=== PATIENT | female | born 1985 | race Caucasian/White ===

== ENCOUNTER 2016-04-26 23:22 | Emergency (ER) ==
[2016-04-26 23:44] VITALS: BP 140/89
[2016-04-26] MEDS ORDERED: ULTRAM PO ONE (23:45)
--- NOTE | 2016-04-27 00:22 | PROVIDER DOCUMENTATION ---
HPI-Musculoskeletal Pain/Inj - GENERAL Source: patient - HX OF PRESENT ILLNESS-MUSKULOSKELTAL Quality of Pain: reports: aching Severity in ED: mild Onset/Duration: just prior to arrival Timing: still present Any recent injury?: Yes Locality of Occurance: Home Similar Symptoms Previously?: No Recently seen or treated by another doctor?: No - LOWER EXTREMITY PAIN/INJURY Lower Extremities Pain: ankle: right Context / Method of Injury: reports: twisted Associated Symptoms: reports: denies symptoms <Machelle Nj - Last Filed: 04/27/16 00:22> <Raul Sandoval - Last Filed: 04/27/16 00:29> - GENERAL Chief Complaint: Extremity Injury Stated Complaint: FT INJURY Time Seen by Provider: 04/26/16 23:30 - HX OF PRESENT ILLNESS-MUSKULOSKELTAL Nature of Presenting Problem: 30 year old F presents to the ED with a cc of right ankle pain. 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 PT c/o pain with ambulation. (Machelle Nj) Review of Systems - Adult - REVIEW OF SYSTEMS - ADULT Constitutional: denies: chills, fever Eyes: reports: no symptoms reported Ears, Nose, Mouth & Throat: reports: no symptoms reported Cardiovascular: reports: no symptoms reported Respiratory: reports: no symptoms reported Gastrointestinal: denies: diarrhea, vomiting Genitourinary: reports: no symptoms reported Musculoskeletal: reports: joint pain, muscle aches. denies: muscle weakness Integumentary: denies: skin sores/ulcer, skin thickening Neurological: reports: no symptoms reported Psychiatric: reports: no symptoms reported Endocrine: reports: no symptoms reported Hematologic/Lymphatic: reports: no symptoms reported Allergic/Immunologic: reports: no symptoms reported All Other Systems: Reviewed and Negative <Machelle Nj - Last Filed: 04/27/16 00:22> Past History - Adult - PAST MEDICAL HISTORY-ADULT Review of Records: reports: Nursing Assessment Review, Medications Reviewed Major Childhood Illnesses: reports: denies history Cardiovascular: reports: denies history Respiratory: reports: denies history Gastrointestinal: reports: denies history Obstetrical/Gynecological: reports: denies history Genitourinary: reports: denies history Musculoskeletal: reports: denies history Neurological: reports: denies history Endocrine/Immune: reports: denies history Other Conditions: reports: denies history - PRIOR SURGERIES/PROCEDURES Surgical/Procedure History: reports: none, other (lipthrotripsy) - IMMUNIZATION STATUS Childhood Immunizations: See Nurse Assessment Flu Vaccine: See Nurse Assessment - FAMILY HISTORY Family History: reviewed, not pertinent - SOCIAL HISTORY Smoking: non-smoker Substance Use: none/never Alcohol Use Frequency: never <Machelle Nj - Last Filed: 04/27/16 00:22> Physical Exam-Injury Related - Physical Exam-Injury Related Initial Vital Signs Reviewed: Yes General Appearance: appears well, alert, no apparent distress Respiratory: chest non-tender, lungs clear, normal breath sounds Cardiovascular: normal peripheral pulses, regular rate, rhythm, no edema Extremity: swelling (right lateral ankle), tenderness (right lateral ankle) Integumentary: normal color, warm/dry Psych/Mental Status: normal mood/affect, normal thought content, normal thought process, oriented x 3 <Machelle Nj - Last Filed: 04/27/16 00:22> Progress - XRAY 1 XRAY: Right XRAY Study: Ankle Impression: Normal XRAY Interpretation: negative: Kamron Sandoval 2 XRAY: Right XRAY Study: Foot Impression: Normal XRAY Interpretation: negative: Kamron Sandoval <Machelle Nj - Last Filed: 04/27/16 00:22> <Raul Sandoval - Last Filed: 04/27/16 00:29> - PLAN OF CARE/RESULTS Progress/Plan/Lab Results: plan of care: imaging, medications Orders Category Date Time Status ANKLE COMPLETE RIGHT [RAD] Stat Exams 04/26/16 23:45 Taken FOOT COMPLETE RIGHT [RAD] Stat Exams 04/26/16 23:45 Taken Tramadol [Ultram] Med 04/26/16 23:45 Discontinued 50 mg PO NOW ONE Vital Signs - 24 hr 04/26/16 23:40 Temperature 98.3 F Pulse Rate 118 H Respiratory 16 Rate Blood Pressure 140/89 O2 Sat by Pulse 100 Oximetry Pt given results and will be d/c home w/ rx to follow up with PCP. Pt verbally understood instructions. PT remained clinically stable throughout the course of the ED stay and will return if symptoms worsen. (Machelle Nj) Orders Category Date Time Status Esteban Wrap Application DIRECTED Care 04/27/16 00:25 Active ANKLE COMPLETE RIGHT [RAD] Stat Exams 04/26/16 23:45 Taken FOOT COMPLETE RIGHT [RAD] Stat Exams 04/26/16 23:45 Taken Tramadol [Ultram] Med 04/26/16 23:45 Discontinued 50 mg PO NOW ONE Vital Signs Temp Pulse Resp BP Pulse Ox 04/26/16 23:40 98.3 F 118 H 16 140/89 100 No Known Allergies Allergy (Verified 08/21/15 19:43) Hydrocodone/APAP 7.5 mg/325 mg [[place]-7.5] 1 each PO Q6H PRN PRN #14 tablet Polyethylene Glycol 3350 [Miralax] 255 gm PO DAILY #1 powder 08/21/15 Promethazine [Phenergan] 25 mg PO Q6H PRN PRN #20 tablet 08/21/15 Hydrocodone/APAP 10 mg/325 mg [[place]-10] 1 each PO Q4H PRN PRN #30 tablet Albuterol Sulfate Inhaler [Ventolin Hfa] 2 puff INH Q6H PRN PRN #1 inhaler 01/04 Azithromycin [Zithromax Z-Александр] 250 mg PO DIRECTED #1 pkg 01/05/16 Prednisone 50 mg PO DAILY #5 tablet 01/05/16 Pt already has crutches at home. 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 Rest, ice and elevate. Follow up with your primary care provider or orthopedist. ED Follow Up Instructions: You have been treated by a care provider in the Emergency Department. These instructions are being provided to you so you can have an understanding of how to care for yourself upon discharge. Upon discharge from the Emergency Department, you are responsible for making arrangements for follow-up care by a physician of your choice. Take all prescribed medications as directed. Return to the Emergency Department immediately for any new or worsening symptoms. You may call the Physician Referral phone number at [phone] to obtain a list of Physicians who are taking new patients. Prescriptions: Cyclobenzaprine [Flexeril] 10 mg PO TID #20 tablet Meloxicam [Mobic] 7.5 mg PO DAILY PRN PRN #15 tablet PRN Reason: Pain Referrals: None,PCP [Primary Care Provider] - Arlene Briggs MD [STAFF PHYSICIAN] - Attestation - Scribe Verification/Attestation Scribe:: Machelle Nj Acting as Scribe for:: Raul Sandoval Scribe documention review:: This chart was documented by a scribe and accurately reflects the service the provider performed and the decisions made by the provider. <Machelle Nj - Last Filed: 04/27/16 00:22> - Physician/ KHALIF Attestation Patient care was provided by Advanced Practice Provider:: Yes Advanced Practice Provider:: Raul Sandoval Advanced Practice Provider documentation review:: The Mid-level provider documentation, treatment plan and medical decision making was reviewed by the physician who agrees with all treatment and medical decision making by the [facility]. <Raul Sandoval - Last Filed: 04/27/16 00:29> Physician Attestation - Physician Attestation I, the provider, attest to the following statement:: Raul Sandoval Physician documentation Attestation:: This documentation recorded by the scribe accurately reflects the service I personally performed and the decisions made by me. <Machelle Nj - Last Filed: 04/27/16 00:22>
--- NOTE | 2016-04-27 08:17 | Diag Imaging Result Document ---
PROCEDURE NAME: FOOT COMPLETE RIGHT - 04/26/2016 RIGHT FOOT, 3 VIEWS: COMPARISON: None. FINDINGS: Bones are intact and normally aligned. Joint spaces and soft tissues are clear. IMPRESSION: Negative exam.
--- NOTE | 2016-04-27 08:18 | Diag Imaging Result Document ---
PROCEDURE NAME: ANKLE COMPLETE RIGHT - 04/26/2016 X-RAY RIGHT ANKLE 3 VIEWS, 04/27/2016: COMPARISON: None. FINDINGS: Bones are intact and normally aligned. Joint spaces and soft tissues are clear. IMPRESSION: Negative exam.
== END 2016-04-27 00:59 | disposition home or self-care (01) ==
LOC: P.ED 23:22
DX: S93.401A Sprain of unspecified ligament of right ankle, initial encounter (principal); M25.571 Pain in right ankle and joints of right foot; M79.1 Myalgia; M25.471 Effusion, right ankle; X58.XXXA Exposure to other specified factors, initial encounter
CPT/HCPCS: 99283

== ENCOUNTER 2018-08-22 17:45 | Inpatient (IN) ==
--- NOTE | 2018-08-22 18:44 | PROVIDER DOCUMENTATION ---
This chart was entered by Sybil Gregory Scribe, acting as scribe for Maryuri Saba CRNP. HPI-Abdominal Pain/GI Problem - General Chief Complaint: GI Bleed Stated Complaint: LOWER ADB/BACK PAIN,CONSTIPATION Time Seen by Provider: 08/22/18 18:10 Source: patient Allergies/Adverse Reactions: Patient Allergies Allergy/AdvReac Type Severity Reaction Status Date / Time No Known Allergies Allergy Verified 07/23/18 13:04 Home Medications: Home Medication List Medication Instructions Recorded Confirmed Last Taken Type Hydrocodone/APAP 7.5 mg/325 mg 1 each PO Q6H PRN PRN #14 tablet 08/21/15 09/01/15 08/29/15 Rx [[place]-7.5] Polyethylene Glycol 3350 [Miralax] 255 gm PO DAILY #1 powder 08/21/15 09/01/15 Unknown Rx Promethazine [Phenergan] 25 mg PO Q6H PRN PRN #20 tablet 08/21/15 09/01/15 Unknown Rx Hydrocodone/APAP 10 mg/325 mg 1 each PO Q4H PRN PRN #30 tablet 09/01/15 Unknown Rx [[place]-10] Albuterol Sulfate Inhaler 2 puff INH Q6H PRN PRN #1 inhaler 01/05/16 Unknown Rx [Ventolin Hfa] Azithromycin [Zithromax Z-Александр] 250 mg PO DIRECTED #1 pkg 01/05/16 Unknown Rx Prednisone 50 mg PO DAILY #5 tablet 01/05/16 Unknown Rx Cyclobenzaprine [Flexeril] 10 mg PO TID #20 tablet 04/27/16 Unknown Rx Meloxicam [Mobic] 7.5 mg PO DAILY PRN PRN #15 tablet 04/27/16 Unknown Rx - History of Present Illness-ABD Nature of Presenting Problems: pt is a 33 yr old female presenting with complaint of bloody bowel movement. pt reports 2 bowel movements with bright red blood and clots noted in toilet. pt denies abdominal pain at this time. pt reports hx of chronic constipation treated by GI as IBS with Linzess, pt stopped taking Linzess recently. pt admits chronic abdominal pain but denies pain currently. pt is tachycardia at 148, reports this is her normal and she has been seen and evaluated by cardiology for same. pt is followed by GI. 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) Timing: reports: still present Activities at Onset: reports: other (bowel movement) Exposure to sick contacts?: No Modifying Factors: improves with: nothing Associated Symptoms: denies: chest pain, diarrhea, genitourinary problems, nausea, vomiting Last BM: this evening (1800) Dark Stools Present?: reports: bright red blood Rectal Bleeding: reports: bleeding without stool (bright red blood and clots noted in toilet) Rectal Pain: reports: none Emesis Description: reports: none Bruising or Bleeding Gums?: No Similar Symptoms Previously?: Yes Recently seen or treated by another doctor?: No Review of Systems - Adult - REVIEW OF SYSTEMS - ADULT Constitutional: denies: fever, fatique Eyes: reports: no symptoms reported Ears, Nose, Mouth & Throat: reports: no symptoms reported Cardiovascular: denies: chest pain, palpitations, syncope Respiratory: denies: cough, shortness of breath Gastrointestinal: reports: rectal bleeding. denies: diarrhea, nausea, vomiting Genitourinary: reports: no symptoms reported Musculoskeletal: reports: no symptoms reported Integumentary: reports: no symptoms reported Neurological: denies: dizziness/vertigo Psychiatric: reports: no symptoms reported Endocrine: reports: no symptoms reported Hematologic/Lymphatic: reports: no symptoms reported Allergic/Immunologic: reports: no symptoms reported All Other Systems: Reviewed and Negative Past History - Adult - PAST MEDICAL HISTORY-ADULT Review of Records: reports: Old Records Reviewed, Nursing Assessment Review, Medications Reviewed, Social history reviewed & non-contributory. Major Childhood Illnesses: reports: denies history Cardiovascular: reports: denies history Respiratory: reports: denies history Gastrointestinal: reports: IBS Obstetrical/Gynecological: reports: denies history Genitourinary: reports: denies history Musculoskeletal: reports: denies history Neurological: reports: denies history Psychiatric: reports: denies history Endocrine/Immune: reports: denies history Other Conditions: reports: denies history - PRIOR SURGERIES/PROCEDURES Surgical/Procedure History: reports: none, cholecystectomy, other (lipthrotripsy) - IMMUNIZATION STATUS Childhood Immunizations: See Nurse Assessment Flu Vaccine: See Nurse Assessment - FAMILY HISTORY Family History: reviewed, not pertinent - SOCIAL HISTORY Smoking: quit greater than 1 year Substance Use: denies Living Situation: family Physical Exam-General - PHYSICAL EXAM-ADULT Initial Vital Signs Reviewed: Yes - CONSTITUTIONAL General Appearance: appears well, alert, no apparent distress, obese - EYES Eyes: PERRL/EOMI - HEAD, EARS, NOSE, MOUTH & THROAT HENMT: normocephalic/atraumatic, moist mucous membranes - RESPIRATORY Respiratory: lungs clear, normal breath sounds - CARDIOVASCULAR Cardiovascular: normal peripheral pulses, tachycardia (148) - GASTROINTESTINAL (ABDOMEN) Abdominal Exam: normal bowel sounds, non tender, soft - GENITOURINARY Rectal Exam: normal rectal tone, other (HARD STOOL WITHIN THE RECTAL VAULT) Hemoccult Exam: heme positive stool - LYMPHATIC Lymphatic: no adenopathy - MUSCULOSKELETAL Extremity: normal range of motion, non-tender, normal gait, normal inspection - SKIN Integumentary: normal color, normal turgor, warm/dry - PSYCHIATRIC Psych/Mental Status: normal mood/affect Progress - PLAN OF CARE/RESULTS Progress/Plan/Lab Results: Vital Signs - 8 hr 08/22/18 18:00 Temperature 97.9 F Pulse Rate 147 H Respiratory Rate 18 Blood Pressure 129/90 O2 Sat by Pulse Oximetry 100 Orders Category Date Time Status ED: Urine Bedside ORDERED Care 08/22/18 18:14 Active Saline Loc NOW Care 08/22/18 18:08 Active BASIC METABOLIC PANEL [CHEM] Stat Lab 08/22/18 18:08 Uncollected CBC WITH ELECTRONIC DIFF [HEME] Stat Lab 08/22/18 18:08 Uncollected OCCULT BLOOD SCREENING [STOOL] Stat Lab 08/22/18 18:08 Uncollected PROTIME WITH INR [COAG] Stat Lab 08/22/18 18:08 Uncollected PTT [COAG] Stat Lab 08/22/18 18:08 Uncollected TYPE & SCREEN [BBK] Stat Lab 08/22/18 18:08 Uncollected UA NIMS W/REFLEX CULT [URINALYSIS] Stat Lab 08/22/18 18:14 Uncollected EKG [EKG] Stat Ther 08/22/18 18:08 Ordered Result Diagrams: 08/22/18 18:55 08/22/18 18:55 - EKG 1 Time of EKG reading by physician:: 19:59 EKG Read and Signed by:: Brandon Renteria EKG Interpretation (*Must complete 3 of following elements*): Abnormal (inferior infarct-age undetermined) Rate: 121 Rhythm: sinus tachycardia [place]: normal QRS: normal AR Interval: normal - CT/MRI 1 CT Study: Abdomen, Pelvis Impression: Abnormal, See EMR Report (EXAM: CT ABD/PELVIS W/IV CONT ONLY INDICATION: abd pain/GI BLEEDING TECHNIQUE: This exam was performed using automated exposure control, adjustment of mA or kV according to patient size, and/or use of iterative reconstruction technique. COMPARISON: 08/21/2015 FINDINGS: There has been a prior cholecystectomy. The liver, spleen, pancreas, adrenal glands, kidneys, and urinary bladder are grossly unremarkable. The reproductive tract is unremarkable as imaged. The appendix is normal. There is rectal wall thickening and subtle inflammatory stranding around the rectum suggesting proctitis. The remainder of the GI tract is essentially unremarkable. There are several shotty borderline prominent pelvic lymph nodes which may be reactive. IMPRESSION: Thickening and subtle inflammatory stranding associated with the rectum suggesting proctitis.) - CONSULTS/PCP/HOSPITALIST Notification #1 *Consult/PCP/Hospitalist*: DR OBANDO Time Discussed: 21:27 Consult Disposition: Admit Departure - Departure Date of Disposition Decision: 08/22/18 Time of Disposition Decision: 21:19 DIAGNOSIS: GI bleed, Proctitis, Hypokalemia Disposition: ADMITTED INPATIENT 09 Certified Medical Emergency: Emergent Condition: Stable Referrals and Follow-Ups: Neftaly Saba [Primary Care Provider] - - Critical Care Note This patient required my direct & personal management of CC.: No Attestation - Physician/ KHALIF Attestation Patient care was provided by Advanced Practice Provider:: Yes Advanced Practice Provider:: Maryuri Saba Advanced Practice Provider documentation review:: The Mid-level provider do cumentation, treatment plan and medical decision making was reviewed by the physician who agrees with all treatment and medical decision making by the MLP. The physician spent face to face time with patient:: No Advanced Practice Provider documentation review:: Supervising physician onsite and consulted in the evaluation and care of this patient. The physician did not have a face to face encounter with the patient. This chart was documented by the indicated scribe, (Sybil Gregory Scribe) and accurately reflects the services I performed and decisions made by me, Maryuri Saba CRNP, as attested by the provider's signature.
[2018-08-22] MEDS ORDERED: NS 1,000 ML IV ONE (18:45)
[2018-08-22 19:08] LABS: URINE SOURCE CLEAN CATCH
[2018-08-22 19:11] LABS: BASO# 0.05 X1000 (0.0-0.2); BASO% 0.4 % (0.0-0.8); EOS# 0.16 X1000 (0.0-0.7); EOS% 1.1 % (0.0-10.0); HEMATOCRIT 33.5 % (37.0-47.0); HEMOGLOBIN 10.8 g/dL (12.0-16.0); LYMPH# 3.07 X1000 (1.2-3.4); LYMPH% 21.9 % (20.5-51.1); MCH 24.8 PG (27-31); MCHC 32.2 g/dL (33-37); MONO# 1.06 X1000 (0.11-0.59); MONO% 7.6 % (1.7-9.3); MPV 10.7 FL (7.4-10.4); NEUT# 9.69 X1000 (1.4-6.5); PLT 452 X1000 (130-400); RBC 4.35 XMIL (4.2-5.4); WBC 14.03 X1000 (4.8-10.8)
[2018-08-22 19:13] LABS: UR EPITHELIAL CELLS <10 /HPF (<10); URINE BACTERIA NEGATIVE /HPF; URINE RBC TNTC /HPF (<10); URINE WBC 20-40 /HPF (<10)
[2018-08-22 19:14] LABS: BILIRUBIN URINE NEGATIVE (NEGATIVE); BLOOD URINE LARGE (NEGATIVE); COLOR BROWN; GLUCOSE URINE NEGATIVE (NEGATIVE); KETONE URINE TRACE mg/dL (NEGATIVE); LEUKOCYTES URINE MODERATE (NEGATIVE); NITRITE URINE NEGATIVE (NEGATIVE); PH URINE 5.5; PROTEIN URINE 100 mg/dL (NEGATIVE); TURBIDITY URINE HAZY (CLEAR); UROBILINOGEN URINE NORMAL (NORMAL)
[2018-08-22 19:19] LABS: INR 0.91
[2018-08-22 19:20] LABS: PTT 27.1 Seconds (22.3-41.8)
[2018-08-22 19:34] LABS: AGAP 17; BUN 9 mg/dL (8-22); CALCIUM 9.4 mg/dL (8.8-10.2); CHLORIDE 100 mmol/L (98-107); COSMO 277; CREATININE 0.9 mg/dL (0.5-0.9); ESTIMATED GFR > 60; GLUCOSE 173 mg/dL (70-104); POTASSIUM 3.1 mmol/L (3.5-5.1); SODIUM 137 mmol/L (136-145); TCO2 20 mmol/L (25-35)
[2018-08-22] MEDS ORDERED: KLOR-CON POWDER PACKET PO ONE (20:53)
--- NOTE | 2018-08-22 21:08 | Diag Imaging Result Doc PS360 ---
EXAM: CT ABD/PELVIS W/IV CONT ONLY INDICATION: abd pain/GI BLEEDING TECHNIQUE: This exam was performed using automated exposure control, adjustment of mA or kV according to patient size, and/or use of iterative reconstruction technique. COMPARISON: 08/21/2015 FINDINGS: There has been a prior cholecystectomy. The liver, spleen, pancreas, adrenal glands, kidneys, and urinary bladder are grossly unremarkable. The reproductive tract is unremarkable as imaged. The appendix is normal. There is rectal wall thickening and subtle inflammatory stranding around the rectum suggesting proctitis. The remainder of the GI tract is essentially unremarkable. There are several shotty borderline prominent pelvic lymph nodes which may be reactive. IMPRESSION: Thickening and subtle inflammatory stranding associated with the rectum suggesting proctitis. Electronically signed by Arben De La O 08/22/2018 9:05 PM
[2018-08-22] MEDS ORDERED: FLAGYL 500 MG/NS 500 MG/100 ML IVPB IV ONE (21:23)
[2018-08-22] MEDS ORDERED: CIPRO 400 MG/D5W 400 MG/200 ML IVPB IV ONE (21:23)
[2018-08-23] MEDS ORDERED: ZOFRAN IV PRN (00:31)
[2018-08-23] MEDS ORDERED: TYLENOL PO PRN (00:31)
--- NOTE | 2018-08-23 00:49 | HISTORY AND PHYSICAL ---
PRIMARY CARE PHYSICIAN: Dr. Neftaly Saba. REASON FOR ADMISSION: 1-day history of hematochezia. HISTORY OF PRESENT ILLNESS: Ms. Shanika Hawkins is a 33-year-old woman with past medical history of hypertension, kidney stones, who comes in today complaining of 3 days episode of large amounts of blood per rectum with clots. She denies any lightheadedness, shortness of breath. No bleeding from any other orifice. No use of topw-icl-mewgvjb medications, including NSAIDs. She reports that for the last 1 month following a sinus infection. She has been very constipated and having intermittent nausea, but no vomiting. For the last several months, she has lost about 30 pounds unexplained. Denies any arthralgia, rash, night sweats. No cardiorespiratory complaints. No genitourinary complaints, other than some difficulty straining occasionally. The patient denies any antecedent history of diarrhea. No recent change in her medications. REVIEW OF SYSTEMS: Twelve system review was done. Positive findings per HPI. Patient says she is stressed at work and at school, not sleeping very well. No suicidal ideation. Patient did admit to having some vague abdominal pain radiating from the left to the right and to her back. Comes on when she is about to defecate and is relieved when she defecates. ALLERGIES: No known allergies. HOME MEDICATION: Norvasc 5 mg daily. SURGICAL HISTORY: She has had cholecystectomy and lithotripsy. SOCIAL HISTORY: She stopped smoking 2 years ago. No alcohol use or drug use. FAMILY HISTORY: Notable for IBS, and COPD. LABORATORY WORK: White count 14,000, hemoglobin and hematocrit 10 and 33, MCV 77, RDW 16, platelets 452,000. Normal differential noted. Chemistry: Potassium 3.1, bicarb 20, anion gap 17, glucose 173. Urinalysis: Too numerous to count RBCs, 20 to 40 WBCs, moderate leukocytes. Stool specimen showed occult positive. CT of the abdomen showed proctitis. PHYSICAL EXAMINATION: VITAL SIGNS: Blood pressure is 127/74, heart rate 147, temperature is 98.3. Initial blood pressure was 147, but after 0.5 L bolus it is 116. GENERAL: She is a young woman, no acute distress. Alert and oriented x3. Normal mood and affect. HEENT: Head is normocephalic, atraumatic. Eyes: PERRLA, EOMI. He is anicteric, not pale. ENT and oropharyngeal exam is grossly normal. NECK: Supple. No JVD or carotid bruit. No thyromegaly. No lymphadenopathy. CHEST: Clear to auscultation. Good air entry both lung obrien. CARDIOVASCULAR: First and 2nd heart sounds heard. No gallops, murmurs, rubs. Rhythm is regular. ABDOMEN: Slightly protuberant, soft with no focal areas of tenderness. No mass or organomegaly. Bowel sounds are normal. EXTREMITIES: Good pulse volume is distally regular, slightly tachycardic. No edema, clubbing, or peripheral cyanosis. NEUROLOGICAL: No gross focal deficits. SKIN: Intact. No breakdown, lesions, or erythema. MUSCULOSKELETAL: Grossly normal. ASSESSMENT: 1. Hematochezia secondary to proctitis, which could be related to the patient having possible fecal impaction causing proctitis versus the possibility of new onset ulcerative colitis. 2. Microcytic anemia, which could be related to iron deficiency for malabsorptive process. 3. Hypertension. 4. History of kidney stones. PLAN: Patient will be kept NPO. Consult GI for possible either flexible sigmoidoscopy with biopsies or a colonoscopy. C-reactive protein was ordered to serve as a marker of inflammation, which can be subsequently monitored. Empiric IV antibiotics were given in the interim. I will defer to Dr. Rossi, GI, for further workup regarding possibility of IBD. We will start patient on mild laxatives. Continue her blood pressure medication and adequate hydration. Anemia workup was ordered. cc: MD Neftaly Nj MD [facility]
[2018-08-23] MEDS: NS 1,000 ML IV SCH ×3 (05:23→14:22)
[2018-08-23] MEDS: FLAGYL 250 MG/NS 250 MG/50 ML IVPB IV SCH ×3 (05:47→17:56)
[2018-08-23 06:36] LABS: HEMOGLOBIN A1C 5.6 % (4.8-6.0)
[2018-08-23 06:37] LABS: AGAP 12; BUN 6 mg/dL (8-22); CALCIUM 8.5 mg/dL (8.8-10.2); CHLORIDE 111 mmol/L (98-107); COSMO 284; CREATININE 0.7 mg/dL (0.5-0.9); ESTIMATED GFR > 60; GLUCOSE 128 mg/dL (70-104); POTASSIUM 3.6 mmol/L (3.5-5.1); SODIUM 143 mmol/L (136-145); TCO2 20 mmol/L (25-35)
[2018-08-23 06:39] LABS: BASO# 0.03 X1000 (0.0-0.2); BASO% 0.3 % (0.0-0.8); EOS# 0.06 X1000 (0.0-0.7); EOS% 0.7 % (0.0-10.0); HEMATOCRIT 27.9 % (37.0-47.0); HEMOGLOBIN 8.8 g/dL (12.0-16.0); IMM GRAN# 0.02 X1000 (0.0-0.04); IMM GRAN% 0.2 % (0.0-0.5); LYMPH# 2.62 X1000 (1.2-3.4); MCH 24.6 PG (27-31); MCHC 31.5 g/dL (33-37); MCV 77.9 FL (81-99); MONO# 0.58 X1000 (0.11-0.59); MONO% 6.4 % (1.7-9.3); MPV 10.4 FL (7.4-10.4); NEUT# 5.72 X1000 (1.4-6.5); NEUT% 63.4 % (42.2-75.2); PLT 388 X1000 (130-400); RBC 3.58 XMIL (4.2-5.4); RDW 16.3 % (11.5-14.5); WBC 9.03 X1000 (4.8-10.8)
[2018-08-23 06:52] LABS: TSH 1.79 uIUmL (0.27-4.20)
--- NOTE | 2018-08-23 07:47 | EKG Report ---
Test Performed on : 08/22/2018 7:54:22 PM Test Reason : TACHYCARDIA Blood Pressure : / mmHG Vent. Rate : 121 BPM Atrial Rate : 121 BPM P-R Int : 142 ms QRS Dur : 082 ms QT Int : 322 ms P-R-T Axes : 073 006 018 degrees QTc Int : 457 ms Sinus tachycardia. Inferior infarct , age undetermined Abnormal ECG When compared with ECG of 25-JUL-2017 12:22, premature atrial complexes. are no longer present Inferior infarct is now present Unconfirmed Result
[2018-08-23] MEDS ORDERED: GOLYTELY PO ONE (10:00)
--- NOTE | 2018-08-23 14:45 | CONSULTATION ---
DATE OF CONSULTATION: 08/23/2018 REQUESTING PHYSICIAN: Dr. Dasilva REASON FOR CONSULTATION: Rectal bleeding. HISTORY: This is a 33-year-old white female patient of Dr. Ware, who had seen Dr. Ware sometimes back. She was apparently diagnosed with proctitis. She was advised to follow up, she did not, and she reports to the emergency room last night with complaints of bright red blood per rectum which started in the evening. She said she has not had any rectal pain, and has been having some bright red blood along with some clots. She denies any abdominal pain, but she did have some lower back discomfort. She has not used any qgab-hsc-zkjhhia medications such as NSAID. She is not on any blood thinner either. She has not any fever or chills. Denies any change in the caliber of the stool. She has not had any melena. Her appetite has been good. She has been eating well, but she said she has lost about 30 pounds in the past few months. She denies any headache or dizziness or double vision. Denies any earache, ear discharge, or ringing in the ears. She has not had any chest pain, shortness of breath or palpitations. She has not had any cough, sputum or hemoptysis. Denies dysuria, polyuria or hematuria. PAST MEDICAL HISTORY: Nothing significant except for hypertension. PAST SURGICAL HISTORY: She has had cholecystectomy and has had lithotripsy. MEDICATIONS: Prior to hospitalization, she has been on Norvasc. ALLERGIES: No known drug allergies. SOCIAL HISTORY: Patient is and lives with her . Does not smoke. Does not drink. Does not do illicit drugs. FAMILY HISTORY: No history of colon cancer, stomach cancer, pancreatic cancer, kidney disease or colitis in the family. REVIEW OF SYSTEMS: As per HPI as above. PHYSICAL EXAMINATION: On examination, very pleasant white female. She is slightly overweight. She is lying in bed. She is conscious, alert, and appears to be in no distress.Vital signs: Temperature 98.1 degrees, pulse 88 per minute, breathing 16, blood pressure was 123/73. She is 5 feet 7 inches tall. She is 228 pounds. HEENT: Head is atraumatic, normocephalic. Eyes: Conjunctivae is normal. Sclerae anicteric. Nares are patent. No discharge. Mouth is moist. Throat is normal. Neck: Neck is supple. No lymphadenopathy or thyromegaly. Chest bilaterally symmetrical. It is moving with respirations. Breath sounds audible bilaterally. No rhonchi or crepitations could be heard. Heart: S1 and S2 audible, No murmur could be appreciated. Abdomen: Full, soft, and nontender. I could not appreciate masses or hepatosplenomegaly. No ascites noted. Bowel sounds are audible. Extremities: No pedal edema, cyanosis, clubbing was noted. GEOSPATIAL SPECIALIST: Grossly intact. No sensory or motor deficits. LABORATORIES: Reviewed which showed WBC of 9.03. Hemoglobin on admission was 10.8, it dropped to 8.8. MCV 77.9, platelets were 388. Sodium 143. Potassium 3.6, chloride 111. Bicarb is 20, BUN is 6, and creatinine 0.7. Glucose 128. IMPRESSION: A 33-year-old white female who has had regular normal menstrual periods has presented with lower GI bleed. She has had significant amount of blood loss. Her hemoglobin has dropped to 8.8. MCV is low also suggestive of acute on chronic bleed. She at this point is hemodynamically stable, but appears to have lost a significant amount of blood which at this point, I am not sure the etiology. Doubt this is hemorrhoidal bleeding because of the significant drop in hemoglobin and hematocrit. Diverticular bleed in a young patient, although she is young, but is a possibility. However, neoplastic lesions is always a possibility. She needs endoscopy evaluation and possible treatment. May need therapeutic measures. I will schedule her for a colonoscopy, but she would need urgent prep, and she will proceed with colonoscopy for therapeutic purposes. Depending on the findings, further plans will be made. I have explained the findings to the patient and her who was present at bedside. They understood. All the pertinent questions answered. In the meantime, I would continue to recheck hemoglobin and hematocrit, transfuse if necessary, and will follow. cc: Enio Rossi MD MTDD
[2018-08-23] MEDS ORDERED: DIPRIVAN 1% ONE (16:40)
--- NOTE | 2018-08-23 17:31 | ENDOSCOPY OPERATIVE NOTE ---
[facility] ENDOSCOPY OPERATIVE NOTE , PATIENT: Shanika Hawkins ADM DATE: 08/23/2018 MR #: [id number] : 1985 COLONOSCOPY PROCEDURE REPORT PROCEDURE DATE: 08/23/2018 SURGEON: Enio Rossi MD STATUS: inpatient ANESTHESIOLOGY TEACHER: Shana Sauceda and Mary Black PREOPERATIVE DIAGNOSIS: The patient is a 33 yr old female here for a colonoscopy due to hematochezia , iron deficiency anemia, and Anemia secondary to chronic blood loss.. PROCEDURE PERFORMED: Colonoscopy with biopsy MEDICATIONS: Per Anesthesia PREP TYPE: GoLytely
[2018-08-23] MEDS ORDERED: REGLAN PO ONE (17:35)
[2018-08-23] MEDS ORDERED: LEVAQUIN 500 MG/D5W 500 MG/100 ML IVPB IV SCH (20:00)
[2018-08-23] MEDS ORDERED: NORVASC PO SCH (21:00)
[2018-08-24] MEDS: NS 1,000 ML IV SCH ×3 (00:49→17:20)
[2018-08-24] MEDS: FLAGYL 250 MG/NS 250 MG/50 ML IVPB IV SCH ×3 (00:49→17:18)
[2018-08-24 06:27] LABS: BASO# 0.06 X1000 (0.0-0.2); EOS# 0.22 X1000 (0.0-0.7); EOS% 3.6 % (0.0-10.0); HEMOGLOBIN 7.7 g/dL (12.0-16.0); LYMPH% 29.6 % (20.5-51.1); MCH 24.3 PG (27-31); MCHC 30.8 g/dL (33-37); MCV 78.9 FL (81-99); MONO# 0.49 X1000 (0.11-0.59); MONO% 8.1 % (1.7-9.3); MPV 10.1 FL (7.4-10.4); NEUT# 3.51 X1000 (1.4-6.5); NEUT% 57.7 % (42.2-75.2); PLT 330 X1000 (130-400); RBC 3.17 XMIL (4.2-5.4); RDW 16.5 % (11.5-14.5); WBC 6.08 X1000 (4.8-10.8)
[2018-08-24 06:36] LABS: AGAP 8; BUN 3 mg/dL (8-22); CALCIUM 8.6 mg/dL (8.8-10.2); CHLORIDE 109 mmol/L (98-107); COSMO 276; CREATININE 0.6 mg/dL (0.5-0.9); ESTIMATED GFR > 60; GLUCOSE 125 mg/dL (70-104); POTASSIUM 3.9 mmol/L (3.5-5.1); SODIUM 139 mmol/L (136-145); TCO2 22 mmol/L (25-35)
--- NOTE | 2018-08-24 06:40 | Diag Imaging Result Doc PS360 ---
CT ABDOMEN/PELVIS W/WO CONTRAS - 08/23/2018 INDICATION: Rectal mass COMPARISON: 08/22/2018 FINDINGS: On the noncontrast exam, there are a couple of stones in the left kidney that are nonobstructing. These measure up to 4 mm. On the contrast-enhanced exam, there is significant constipation. There is nonspecific wall thickening of the rectum. There is some asymmetric thickening of the right inferior rectal wall which may be due to collapse. There is some perirectal lymphadenopathy and bilateral internal iliac adenopathy stable from prior. IMPRESSION: 1. Indeterminate wall thickening of the rectum. Subtle asymmetric thickening of the right wall. Direct inspection may be helpful for excluding possible mass. 2. Perirectal and bilateral internal iliac lymphadenopathy, nonspecific. 3. Nonobstructing left-sided renal stones. This exam was performed using automated exposure control, adjustment of mA or kV according to patient size, and/or use of iterative reconstruction technique Electronically signed by Jose Juan Zepeda 08/24/2018 6:38 AM
--- NOTE | 2018-08-24 10:56 | PROGRESS NOTE ---
DATE: 08/24/2018 SUBJECTIVE: The patient is resting in bed. She has no complaints. OBJECTIVE: Vital Signs: Temperature 98.2 degrees, blood pressure 102/46, heart rate 89, respirations 20, O2 saturation is 100% on room air. General: This is a young female lying in bed in no acute distress. Heart: S1, S2 normal. Regular rate and rhythm. Lungs: Clear to auscultation bilaterally. Abdomen: Positive bowel sounds. Soft, nontender, and nondistended. Extremities: No edema. No cyanosis. Neurologic: The patient is alert and oriented x4. LABORATORY: Hemoglobin 7.7, hematocrit 25.5, platelets 330,000. Sodium 139, potassium 3.9, chloride 109, CO2 22, calcium 8.6, and glucose 125. ASSESSMENT AND PLAN: 1. Hematochezia secondary to a fungating rectal mass. Oncology and General Surgery have been consulted. 2. Proctitis. Continue with antibiotic therapy. 3. DVT prophylaxis. Continue with SCD's. cc: Mayra Marcos MD
[2018-08-24] MEDS ORDERED: VITAMIN B-12 SL SCH (12:00)
[2018-08-24] MEDS ORDERED: INJECTAFER 750 MG in NS 250 ML IV SCH (12:00)
--- NOTE | 2018-08-24 12:33 | HEMO/ONC CONSULTATION ---
DATE: 08/24/2018 CHIEF COMPLAINT: Requested consultation for the patient regarding rectal mass. 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 She came to the emergency room on the - with complaints of bright red blood per rectum which had started that evening. She reported 2 bowel movements with bright red blood and clots. However, she does not have any abdominal pain at that time. She did however have some lower back pain. She denies any rectal pain. She has not used any wgnz-afa-hejbleq medications, such as NSAIDS nor is she on any blood thinners. She denies fevers and chills, and any change in the caliber of her stool. She states she has had problems with constipation and IBS in the past. She denies any black or tarry stools. Her appetite has been good. However, she has lost unintentionally 30 pounds in the last 2 months. She denies chest pain, shortness of breath, or dizziness. There has been no recent change in her medications. PAST MEDICAL HISTORY: Hypertension. PAST SURGICAL HISTORY: Cholecystectomy and lithotripsy. SOCIAL HISTORY: She stopped smoking approximately 2 years ago. She denies alcohol or any illicit drug use. HOME MEDICATIONS: Include Norvasc 5 mg nightly. REVIEW OF SYSTEMS: Negative, except what was mentioned in the HPI. ALLERGIES: No known drug allergies. LABORATORY DATA: WBC 6.08, hemoglobin 7.7, hematocrit 25, platelet count 330. Iron 25, ferritin 27, CEA 4.0, vitamin B 12 498, folate 11.8. PHYSICAL EXAM: General: She is slightly overweight, pleasant female in no acute distress. Respiratory: Lungs are clear to auscultation. Normal respiratory effort. Cardiovascular: Normal S1, S2. Regular rate and rhythm. Abdomen: Protuberant, soft, nondistended, nontender. No hepatosplenomegaly noted. Extremities: No edema noted. Neurological: Awake, alert and oriented x3. No gross motor focal deficits. Vital Signs: Temperature 98.2 degrees, pulse rate 89, respiratory rate 20, blood pressure 102/46, O2 saturation 100% on room air. She is in 0/10 pain yesterday. X-RAYS: Yesterday's CT abdomen and pelvis shows indeterminate wall thickening of the rectum, suspicious for possible mass, terrance rectal and bilateral internal iliac lymphadenopathy. ASSESSMENT: 1. Hematochezia secondary to fungating rectal mass. 2. Proctitis. 3. Deep venous thrombosis prophylaxis. PLAN: Colonoscopy revealed a bleeding malignant mass in the rectum. We will continue to await pathology. She has ordered a dose of IV iron today to support her anemia. We will also supplement B 12 to maximize her level. We will continue to follow the patient over the weekend. Dictated by CARYN Salas for Mathew Davalos MD Patient seen and examined. As above. Patient admitted with anemia and rectal bleeding. CT scan revealed a rectal mass and bilateral internal iliac lymphadenopathy. Colonoscopy reveals malignant appearing mass in the rectum. Follow-up on pathology. Plan for outpatient PET scan. If this turns out to be rectal cancer, she will require preoperative chemoradiation followed by surgery. Mathew Davalos M.D. cc: Mathew Davalos MD MTDKris
--- NOTE | 2018-08-24 15:57 | CONSULTATION ---
DATE OF CONSULTATION: 08/24/2018 HISTORY OF PRESENT ILLNESS: Ms. Shanika Ellis is a 33-year-old white female who is otherwise healthy, has 2 children. She passed some blood per rectum and presented to the emergency department where she underwent evaluation with a CT scan of her abdomen and pelvis which suggested thickening of her rectal wall distally. She has also had some vague abdominal symptoms and has seen Dr. Ware and Dr. Rossi in the past. Dr. Rossi performed sigmoidoscopy which documented rectal cancer, and we were asked to evaluate her. PAST MEDICAL HISTORY: She is a former smoker and she has high blood pressure. MEDICATIONS: Norvasc 5 mg p.o. at bedtime. She is overweight. REVIEW OF SYSTEMS: A 14-point review of systems was performed. She has had no significant loss of weight. She has had vague abdominal symptoms. She has not noticed blood per rectum before, except with hard bowel movements occasionally. PHYSICAL EXAMINATION: General: On exam, Ms. Shanika Hawkins is a healthy-appearing white female, young, no acute distress. HEENT exam: No jaundice. No oral lesions. Satisfactory dentition. Neck: No cervical or supraclavicular lymphadenopathy. Heart: Her heart has regular rate. Lungs: Lungs are clear to auscultation and percussion bilaterally. Abdomen: Abdomen is soft, nontender without palpable mass. No evidence of hernia. No costovertebral tenderness. No abdominal tenderness. Rectal: On rectal exam, she did have what appears to be locally advanced rectal tumor distally just inside the anus. Extremities: She has palpable peripheral pulses. No peripheral edema. Neurological: No focal deficit. DIAGNOSTIC DATA: CT scan of her abdomen and pelvis was reviewed with our radiologist, Dr. Medina. It appears that she does have some apparent lymph nodes in the mesorectum, and there is thickening of the rectum with some stranding suggesting locally advanced rectal cancer with possibly involved perirectal lymph nodes. IMPRESSION: Distal rectal cancer with possible lymph node involvement locally advanced. PLAN: Dr. Davaols is scheduled to see the patient. She will need preoperative chemo radiation prior to any resection. On exam of her rectum today, I think that this tumor is so low that it will not be a low anterior resection, but an abdominoperineal resection. I was cyndi with the patient and her at the bedside talking about her diagnosis of rectal cancer and its treatment. cc: Evangelina Armstrong MD
[2018-08-24 16:46] VITALS: BP 119/72
--- NOTE | 2018-08-24 19:38 | GASTROENTEROLOGY PROGRESS NOTE ---
DATE: 08/24/2018 SUBJECTIVE: Patient was awake and alert, in no acute distress. She is sitting on the side of bed with family. The patient had a colonoscopy on 08/23/2018. Indication for anemia and rectal bleeding. Colonoscopy findings showed a bleeding malignant tumor/mass in the rectum with multiple biopsies performed. There was a significant amount of stool present in the sigmoid colon and descending colon. The patient has had CT scan since the procedure yesterday. Findings showed indeterminate wall thickening of the rectum, subtle asymmetric thickening of the right wall, perirectal and bilateral internal iliac lymphadenopathy, nonobstructive left-sided renal stone. OBJECTIVE: Vital Signs: Temperature 98.5, pulse 92, respirations 16, blood pressure 109/71. General: Patient is awake and alert, in no acute distress. She has family at the bedside. LABORATORY: Hematology: WBC 6.08, hemoglobin 7.7, hematocrit 25.0, MCV 78.9, platelet 330,000. Chemistry: Sodium 139, potassium 3.9, chloride 109, CO2 of 22, BUN 3, creatinine 0.6, glucose 125, C-reactive protein 15.38, CEA 4.0. ASSESSMENT: 1. Rectal bleeding. 2. Findings of rectal mass by colonoscopy. 3. Anemia. PLAN: Patient has been seen by Hematology. She has also been seen by [facility]. We will follow their recommendations. We are waiting on pathology results. Further plans will be made as needed. Patient voices understanding of this plan. I have discussed this case with Dr. Rossi. Dictated by CARYN García for Enio Rossi MD cc: CARYN Farrell MD
== END 2018-08-24 20:04 | disposition home or self-care (01) | DRG 375 ==
LOC: ED 17:45 → 4N 08-23 00:24 → SUATTDRO 08-23 00:24
PROVIDERS: ATTEND Internal Medicine
CPT/HCPCS: 74177; 74178; 80048; 81001; 81025; 82270; 82378; 82607; 82728; 82746; 83036; 83540; 83735; 84443; 85025; 85610; 85730; 86140; 86850; 86900; 86901; 87088; 88305; 88313; 93005; 96361; 96365; 96367; 99285; A9270; J0744; J1439; J1956; J7030; J7050; Q9967; S0030